=== PATIENT | female | born 1940 | race Hispanic/Latino ===

== ENCOUNTER 2018-04-05 09:57 | Outpatient (CLI) | payer MEDICARE, BC | END 2018-04-05 09:58 | disposition home or self-care (01) | LOC: BICMAMMO 09:57 | PROVIDERS: ATTEND Family Medicine | DX: Z12.31 Encounter for screening mammogram for malignant neoplasm of breast (principal); Z80.3 Family history of malignant neoplasm of breast; R92.1 Mammographic calcification found on diagnostic imaging of breast | CPT/HCPCS: 77063; 77067 ==

== ENCOUNTER 2018-12-17 15:34 | Outpatient (CLI) | payer MEDICARE, BC ==
--- NOTE | 2018-12-17 16:04 | RAD ---
FExam:Right humerus 2 views HISTORY: Pain COMPARISON: None FINDINGS: No fracture. No cortical irregularity. No periosteal reaction IMPRESSION: No fracture.
== END 2018-12-17 15:35 | disposition home or self-care (01) ==
LOC: BICRAD 15:34
PROVIDERS: ATTEND Physician Assistant
DX: M25.511 Pain in right shoulder (principal)

== ENCOUNTER 2019-12-02 08:04 | Emergency (ER) | payer MEDICARE, BC ==
--- NOTE | 2019-12-02 08:56 | RAD ---
LEFT ANKLE 3 VIEWS: Date: 12/02/2019 HISTORY: Pain. COMPARISON: None. FINDINGS: There is subtle avulsion fracture to tip of lateral malleolus. Moderate lateral malleolar soft tissue swelling. The fifth metatarsal tuberosity is intact. The medial malleolus is intact, as well as the posterior malleolus. Mild vascular calcifications. IMPRESSION: Nondisplaced small avulsive-type fracture lateral malleolar tip. POS: [facility]
--- NOTE | 2019-12-02 08:57 | RAD ---
LEFT FOOT 3 VIEWS: Date: 12/02/2019 HISTORY: Pain. COMPARISON: None. FINDINGS: There is a small avulsive-type fracture of lateral malleolar tip. 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 Large intramedullary cyst to the distal phalanx of great toe. IMPRESSION: Small avulsive-type fracture of lateral malleolar tip. POS: [facility]
== END 2019-12-02 10:15 | disposition home or self-care (01) ==
LOC: ERS 08:04
DX: S82.62XA Displaced fracture of lateral malleolus of left fibula, initial encounter for closed fracture (principal); E78.5 Hyperlipidemia, unspecified; E78.00 Pure hypercholesterolemia, unspecified; I10 Essential (primary) hypertension; Z79.82 Long term (current) use of aspirin; Z79.899 Other long term (current) drug therapy; X50.1XXA Overexertion from prolonged static or awkward postures, initial encounter

== ENCOUNTER 2020-02-20 10:20 | Outpatient (CLI) | payer MEDICARE, BC ==
--- NOTE | 2020-02-20 15:20 | RAD ---
RIGHT HAND TWO VIEWS: History: Patient injured hand moving herself in bed the other day. Comparison: Wrist films, also done today. FINDINGS: The bones are diffusely demineralized. 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 There is de formity to the distal radius which appears chronic in nature, related to an old fracture. 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 IMPRESSION: Old distal radial fracture. No acute findings. POS: [facility]
--- NOTE | 2020-02-20 16:04 | RAD ---
RIGHT WRIST 2 VIEWS: HISTORY: The patient injured herself getting out of bed. Son noticed wrist deformity. FINDINGS: The bones were diffusely demineralized. There are arthritic changes of the wrist. Degenerative elkins ges at the radiocarpal joint space. There is abutment of the distal ulna adjacent to the adjacent alejandro rachel compatible with underlying choric triangular fibrocartilage tear. Deformity to the distal radiu s is compatible with an old injury. IMPRESSION: No acute findings. POS: [facility]
== END 2020-02-20 10:21 | disposition home or self-care (01) ==
LOC: BICRAD 10:20
PROVIDERS: ATTEND Family Medicine
DX: S69.91XA Unspecified injury of right wrist, hand and finger(s), initial encounter (principal); Z87.81 Personal history of (healed) traumatic fracture